=== PATIENT | female | born 1945 | race Caucasian/White ===

== ENCOUNTER 2024-12-28 09:14 | Outpatient (AMB) | payer OTHER, SELFPAY ==
--- NOTE | 2024-12-28 09:21 | MHC.OFFVIS ---
Intake Visit Reasons: 5M DEMENTIA HPI Comments Details: 79 yo woman with Alzheime rype dementia. (with family h/o dementia was here for similar complaints that started in 2023. She was getting confused, forgetful, anxious and depressed. She was recalling her departed and misunderstanding her present present friend with a friend she used to have. She could not figure out how to manage her car's gadgets. No alcohol history or head trauma.) She is presenting for a follow-up visit for memory impairment. The patient acknowledges difficulty with her memory, and her caregiver reports that she forgets a lot, including asking about her appointments 10 to 20 times. Although she repetitively asks about her appointments, she does remember that she has them. The patient experiences visual hallucinations, such as seeing her daughter and granddaughter who live in [place], but these do not seem to bother her. She also misidentifies her caregiver as Al, a person she knew over 30 years ago. Her partner notes she has difficulty with walking, particularly going over curbs, which is attributed to knee pain. 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 Current medications include donepezil 5 mg and sertraline 25 mg for anxiety. She has not previously taken memantine. Her had number of questions that were answered. Review of Systems Narrative - General: Denies pain. - Neurological: Reports memory difficulties. - Musculoskeletal: Partner reports she has trouble walking due to bad knees. - Psychiatric: Reports visual hallucinations. - Genitourinary: Denies difficulty with bladder control. Physical Exam Neuro Other: Mental Status: Alert and oriented to person, place, and time. Normal attention. Normal spontaneous speech, fluency, and comprehension. Cranial Nerves: CN II: Visual quevedo full to confrontation, visual acuity intact. CN III, IV, : Pupils equal, round, reactive to light and accommodation. Extraocular movements are normal. CN V: Facial sensation is normal. CN VII: Facial movements symmetrical. CN VIII: Hearing intact to bedside conversation is normal. CN IX, X: Palate elevates symmetrically. CN XI: Shoulder shrug and head turn symmetrical. CN XII: Tongue midline without atrophy or fasciculations. Extrapyramidal: Full facial expressions and blinking. No rigidity. Movements are appropriate with no tremor or abnormality. Speech: Normal; no dysarthria or tremor. Assessment & Plan Assessment & Plan (1) Dementia with Lewy bodies: Code(s): G31.83 - Neurocognitive disorder with Lewy bodies; F02.80 - Dementia in other diseases classified elsewhere, unspecified severity, without behavioral disturbance, psychotic disturbance, mood disturbance, and anxiety Category: Medical Qualifiers: Dementia severity: moderate Dementia behavioral or psychological symptom: with anxiety Qualified Code(s): G31.83 - Neurocognitive disorder with Lewy bodies; F02.B4 - Dementia in other diseases classified elsewhere, moderate, with anxiety Plan Impression: Dementia with Lewy bodies Rec: a: Donepezil 10mg one a day b: Memantine 5mg bid c: Sertraline 25mg one a day I discussed the plan to adjust the patient's medications for memory. I explained that I am increasing her donepezil dose from 5 mg to the full dose of 10 mg. I am also adding memantine 5 mg twice daily. I informed the patient and her caregiver that memantine has a 50/50 chance of being effective and we will re-evaluate its benefit at the next follow-up. I noted that if it is not helpful, it can be discontinued, but it is a benign medication. We will continue the current dose of sertraline 25 mg for anxiety. Medications: New donepezil 10 mg PO BEDTIME 90 tabs 1RF sertraline 25 mg PO DAILY 90 tabs 1RF memantine (Namenda) 5 mg PO BID 180 tabs 0RF Coding Level of Care Code Est Pt Level 4 (59198) Diagnoses Moderate Lewy body dementia with anxiety G31.83; F02.B4 Dementia severity: moderate Dementia behavioral or psychological symptom: with anxiety
--- OUTSIDE RECORDS SUMMARY | 2024-12-28 17:07 | XMS_ITS ---
Author Name [facility] Organization Unknown Care Team Organization Name Specialty Phone Email Start Date End Da te [facility] Maris Cha [facility] 12/17/2021 4
--- OUTSIDE RECORDS SUMMARY | 2024-12-28 17:07 | XMS_ITS | Clinical Summary ---
Author Organization [facility] Address [address] [place] [address] Phone Care Team Providers Care Consumer Studies Professor Name Role Phone Maris Cha MD Primary Care Provider [phone] Allergies No known active allergies Medications UNABLE TO FIND Apoaequorin 10 MG Cap Sig - Route: Take by mouth. - Oral Class: Historic Active LUTEIN ORAL Take 1 capsule by mouth 1 (one) time each day. Active TURMERIC ORAL Take 400 mg by mouth 2 times daily. Active docosahexaenoic acid/epa (FISH OIL ORAL) 2 tabs daily Active calcium carbonate-vitam in D3 600 mg-5 mcg (200 unit) per tablet 1 BID Active ginkgo biloba (GINKOBA ORAL) 60mg bid Activ e ascorbic acid (VITAMIN C) 500 mg tablet 1 tab daily Active B complex tablet daily Active GENERIC EXTERNAL MEDICATION CBD gummy QHS Activ e simvastatin (ZOCOR) 10 mg tablet TAKE 1 TABLET BY MOUTH AT BEDTIME 90 tablet 1 5 Active aspirin 81 mg chewable tablet Chew 1 tablet (81 mg total) 1 (one) time each day. Active sertraline (ZOLOFT) 25 mg tablet Take 1 tablet (25 mg total) by mouth 1 (one) time each day. 90 tablet 1 5 Active donepeziL (ARICEPT) 5 mg tablet Take 1 tablet (5 mg total) by mouth at bedtime. 90 tablet 1 5 Active Active Problems Problem Noted Date Diagnosed Date Cognitive impairment 11/20/2023 Overview (02/05/2024): MMSE 25 out of 30. Dementia panel ordered. MRI revealing white matter changes suggestive of chronic small vessel ischemia and prominent ventricles which could represent normal pressure hydrocephalus. Neurology referral placed. Patient advised to avoid driving. Bilateral bunions 04/17/2023 Macular degeneration 04/17/2023 Prediabetes 04/18/2022 Abnormal Pap smear of cervix 06/30/2007 Overview (02/05/2024): Atypical cells 02/16 hysterectomy Hypercholesterolemia 08/19/2005 Encounters Date Type Department Care Team Description 10/05/2024 8:45 AM EDT Office Visit Adult Medicine [address] [address] Maris Cha MD Prediabetes (Primary Dx); Hypercholesterolemia; Cognitive impairment from Last 3 Months Immunizations Immunization Administration Dates Next Due Influenza trivalent, 0.5mL ( Fluad) 65yo and older 10/07/2022,10/02/2021,10/31/2020,10/28,10/22/2016,10/16/2015 Influenza trivalent, 0.5mL, preservative free (Fluarix; FluLaval; Fluzone) ages 6mo and older (Afluria) 3 years and older 11/15/2014,10/19/2012,10/28/2011,10/18,11/23/2009 Influenza trivalent, with pr eservative (Fluzone; Afluria) 6mo and older 09/26/2019 Influenza, Unspecified 10/14/2017,2016,10/16/2015,11/15,11/16/2013 Moderna Covid-19 Bivalent, O riginal + Ba.1 (Non-US Tradename Spikevax Bivalent) 12/02/2021 Moderna SARS-CoV-2 COVID-19, mRNA, LNP-S, preservative free 05/19/2021 Pfizer (ages 12 & older) Biv alent, COVID-19 11/06/2022 Pfizer SARS-CoV-2 COVID-19, mRNA, LNP-S, preservative free 11/13/2020 Pneumococcal conjugate 13 va lent (Prevnar 13, PCV13) 2mo and older 08/23/2014 Pneumococcal polysaccharide 23 valent (Pneumovax 23) 2yo and older 07/27/2009 Respiratory syncytial virus (RSV), unspecified 01/30/2023 Td Tetanus diptheria (Tdvax) 7yo and older 04/14/2022,02/29/2008,08/19/2005 Tdap Tetanus diptheria acell ular pertussis (Boostrix; Adacel) 7yo and older 08/19/2012 Zoster Live 03/09/2008 Zoster recombinant (Shingrix ) 19yo and older 07/23/2018,03/16/2018 Surgical History Surgery Date Site/Laterality Comments HYSTERECTOMY fibroids, supracervical COLONOSCOPY 03/2003 COLONOSCOPY 04/14/2013 : normal; repeat in ten yrs (optional) Medical History Medical History Date Comments Pure hypercholesterolemia 08/19/2005 Prediabetes 04/18/2022 Macular degeneration 04/17/2023 Bilateral bunions 04/17/2023 Hypertension Alzheimer dementia ([facility] V24, [facility] V28) Family History Medical History Relation Name Comments Stroke Father 70s Diabetes Maternal Grandmother Stroke Mother 75, diabet es, alzheimers Heart attack Paternal Grandmother Alzheimer's disease Sister diabetes Relation Name Status Comments Father Maternal Grandmother Mother Paternal Grandmother Alive Sister Social History Tobacco Use Types Packs/Day Years Used Date Smoking Tobacco: Never Smokeless Tobacco: Never Tobacco Cessation:Counseling Given: Not Answered Alcohol Use Standard Drinks/Week Comments No 0 (1 standard drink = 0.6 oz pur e alcohol) Housing Instability Answer Date Recorde d Are you worried that in the next 2 months you may not have stable housing? No 10/03/2024 Food Access & Nutrition Answer Date Rec orded Do you have access to a vari ety of food including fruits and vegetables? Yes 10/03/2024 Access to Healthcare Answer Date Record ed Within the last 3 months, [place] many times did you visit the emergency department for your medical care? 0 10/03/2024 Health Literacy Answer Date Recorded How often do you need to hav e someone help you when you read instructions, pamphlets, or other written material from your doctor or pharmacy? Sometimes 10/03/2024 Caregiver: How often do you need to have someone help you when you read instructions, pamphlets, or other written material from your doctor or pharmacy? Not on file 10/03/2024 Financial Risk Answer Date Recorded How hard is it for you to pa y for the very basics like food, housing, medical care, and air conditioning / heating? Not very hard 10/03/2024 Transportation Answer Date Recorded Has the lack of transportati on kept you from meetings, work, or from getting things needed for daily living? No Has the lack of transportati on kept you from medical appointments or from getting medications? No 10/03/2024 Social Isolation Answer Date Recorded How often do you feel lonely or isolated from th ose around you? Never 10/03/2024 Food Risk Answer Date Recorded Within the past 12 months we worried whether our food would run out before we got money to buy more. Never true 10/03/2024 Within the past 12 months th e food we bought just didn't last and we didn't have money to get more. Never true 10/03/2024 Dependent Care Answer Date Recorded Do you need help finding or paying for care for your loved ones. For example, infant childcare provider or elderly care for an older adult? No 10/03/2024 Education Answer Date Recorded Do you think completing more education or training, like finishing a GED, going to college, or learning a trade, would be helpful for you? No 10/03/2024 Employment and Income Answer Date Recor ded During the last four weeks, have you been actively looking for work? No 10/03/2024 Living Situation Answer Date Recorded What is your living situation? Unrecognized valu e 10/03/2024 Comments No Sex and Gender Information Value Date Recorded Sex Assigned at Female 04/02/2024 8:54 PM EST Legal Sex Female 10:28 PM EST Gender Identity Female 04/02/2024 8:54 PM EST Sexual Orientation Straight 04/02/2024 8: 54 PM EST Obstetrics History Last Filed Vital Signs Vital Sign Reading Time Taken Comments Blood Pressure 120/60 10/05/2024 8:41 AM EDT Pulse 77 10/05/2024 8:41 AM EDT Temperature 35.8 C (96.4 F) 10/05/2024 8:41 AM EDT Respiratory Rate 14 10/05/2024 8:41 AM EDT Oxygen Saturation 98% 10/05/2024 8:41 AM EDT Inhaled Oxygen Concentration - - Weight 75.9 kg (167 lb 6.4 oz) 10/05/2024 8:41 A M EDT Height 162.6 cm (5' 4 ) 10/05/2024 8:41 AM EDT Body Mass Index 28.73 10/05/2024 8:41 AM EDT Plan of Treatment Upcoming Encounters Date Type Department Care Team (Late st Contact Info) Description 04/07/2025 8:30 AM EST Office Visit Adult Medicine [facility] [address] [place] [address] Kavitha Munoz PA [address], [place] Health Maintenance Due Date Last Done Comments RSV Immunization Adult Patients (1 - 1-dose 75+ series) 06/07/2019 01/30/2023 Osteoporosis Screening (Bone Density Screening) 01/18/2022 COVID-19 Vaccine ( season) 2025 10/26/2024, 10/07/2023, 11/06/2022, Additional history exists Social Influencers of Health Screening 10/03/2025 10/03/2024 Falls Risk Assessment 10/05/2025 10/05/2024, 025 Cholesterol Screening (Lipid Panel) 04/06/2029 04/06/2024, 04/17/2023 DTaP,Tdap,and Td Vaccines (5 - Td or Tdap) 04/14/2032 04/14/2022, 08/19/2012, 02/29/2008, Additional history exists Pneumococcal Vaccine: 50+ Years Completed 08/23/2014, 07/27/2009 Zoster Vaccines Completed 07/23/2018, 06/2018, 03/09/2008 RSV Immunization Patients Under 20 months Aged Out 01/30/2023 No longer eligible based on patient's age to complete this topic Depression Screening Completed 10/03/2024 Influenza Vaccine Completed 10/26/2024, , 10/02/2021, Additional history exists HIB Vaccines Aged Out No longer eligi ble based on patient's age to complete this topic HPV Vaccines Aged Out No longer eligi ble based on patient's age to complete this topic Hepatitis A Vaccines Aged Out No long er eligible based on patient's age to complete this topic Hepatitis B Vaccines Aged Out No long er eligible based on patient's age to complete this topic IPV Vaccines Aged Out No longer eligi ble based on patient's age to complete this topic MMR Vaccines Aged Out No longer eligi ble based on patient's age to complete this topic Meningococcal ACWY Vaccine Aged Out N o longer eligible based on patient's age to complete this topic Meningococcal B Vaccine Aged Out No l onger eligible based on patient's age to complete this topic Varicella Vaccines Aged Out No longer eligible based on patient's age to complete this topic Procedures Procedure Name Priority Date/Time Associated Diagnosis Comments BASIC METABOLIC PANEL Routine 10/05/2024 9:12 AM EDT Prediabetes HEMOGLOBIN A1C Routine 10/05/2024 9:12 AM EDT Prediabetes LIPID PANEL WITH REFLEX TO DIRECT LDL Routine 04/06/2024 3:20 PM EST Hypercholesterolemi a from Last 3 Months or Most Recently Relevant to Health Maintenance Results * Hemoglobin A1c (10/05/2024 9:12 AM EDT) Hemoglobin A1C 6.0 <6.5 % LAB CHEMISTRY METHOD 10/05/2024 1:42 PM EDT [facility] Mean Bld Glu Estim. 126 mg/dL LAB CHEMISTRY METHOD 10/05/2024 1:42 PM EDT [facility] Blood Venous blood specimen / Unknown Venipuncture / Unknown 10/05/2024 9:12 AM EDT 10/05/2024 9:12 AM EDT us Maris Cha MD LAB BLOOD ORDERABLES Final Resul t [facility] [address] [place] [address], * (ABNORMAL) Basic metabolic panel (10/05/2024 9:12 AM EDT) Sodium 142 133 - 145 mmol/L LAB CHEMISTRY METHOD 10/05/2024 12:47 PM [facility] Potassium 4.0 3.5 - 5.5 mmol/L LAB CHEMISTRY METHOD 10/05/2024 12:47 PM [facility] Chloride 107 96 - 110 mmol/L LAB CHEMISTRY METHOD 10/05/2024 12:47 PM [facility] CO2 29 21 - 32 mmol/L LAB CHEMISTRY METHOD 10/05/2024 12:47 PM [facility] Anion Gap 6 3 - 11 LAB CHEMISTRY METHOD 10/05/2024 12:47 PM [facility] Glucose 123(H) 70 - 100 mg/dL LAB CHEMISTRY METHOD 10/05/2024 12:47 PM [facility] BUN 21 5 - 25 mg/dL LAB CHEMISTRY METHOD 10/05/2024 12:47 PM [facility] Creatinine 0.98 0.50 - 1.10 mg/dL LAB CHEMISTRY METHOD 10/05/2024 12:47 PM [facility] eGFR 58(L) >=60 mL/min/1. 73m2 LAB CHEMISTRY METHOD 10/05/2024 12:47 PM [facility] Comment:Calculation based on the Chronic Kidney Disease Epidemiology Collaboration (CKD-EPI) equation refit without adjustment for race. BUN/Creatinine Ratio 21.4 LAB CHEMISTRY METHOD 10/05/2024 12:47 PM [facility] Calcium 9.0 8.5 - 10.5 mg/dL LAB CHEMISTRY METHOD 10/05/2024 12:47 PM [facility] Blood Venous blood specimen / Unknown Venipuncture / Unknown 10/05/2024 9:12 AM EDT 10/05/2024 9:12 AM EDT us Maris Cha MD LAB BLOOD ORDERABLES Final Resul t [facility] [address] [place] [address], [place] [phone] * (ABNORMAL) Lipid panel with reflex to direct LDL (04/06/2024 3:20 PM EST) Cholesterol 231(H) 0 - 200 mg/dL LAB CHEMISTRY METHOD 04/06/2024 7:03 PM EST [facility] Triglycerides 285(H) 0 - 150 mg/dL LAB CHEMISTRY METHOD 04/06/2024 7:03 PM [facility] HDL 65 >=40 mg/dL LAB CHEMISTRY METHOD 04/06/2024 7:03 PM EST [facility] LDL Calculated 109(H) 0 - 100 mg/dL LAB CHEMISTRY METHOD 04/06/2024 7:03 PM EST [facility] VLDL Cholesterol José 57 mg/dL LAB CHEMISTRY METHOD 04/06/2024 7:03 PM [facility] Non HDL Chol. (LDL+VLDL) 166(H) <145 mg/dL LAB CHEMISTRY METHOD 04/06/2024 7:03 PM [facility] Chol/HDL Ratio 3.6 0.0 - 4.4 LAB CHEMISTRY METHOD 04/06/2024 7:03 PM [facility] Blood Venous blood specimen / Unknown Venipuncture / Unknown 04/06/2024 3:20 PM EST 04/06/2024 3:20 PM EST us Maris Cha MD LAB BLOOD ORDERABLES Final Resul t [facility] [address] [place] [address], [place] [phone] from Last 3 Months or Most Recently Relevant to Health Maintenance Insurance [facility] Care Teams Consumer Studies Professor Relationship Specialty Start Date End Date Maris Cha MD [address] [place] [address] PCP - General 05/04/00
== END 2024-12-28 09:35 | disposition home or self-care (01) ==
LOC: HO.HSM 09:14
PROVIDERS: PCP Internal Medicine; Referring Provider Internal Medicine; Visit Provider Psychiatry & Neurology Neurology
DX: G31.83 Neurocognitive disorder with Lewy bodies (principal); F02.B4 Dementia in other diseases classified elsewhere, moderate, with anxiety
CPT/HCPCS: 99214